=== PATIENT | male | born 1945 | race Caucasian/White ===

== ENCOUNTER 2020-09-06 19:46 | Inpatient (IN) | payer MEDICARE, OTHER ==
[~2020-09-06] VITALS: Ht 180.3 cm; Wt 106.1 kg
[2020-09-06] MEDS ORDERED: NORVASC5 MG PO (19:53)
[2020-09-06] MEDS ORDERED: FLOMAX0.4 MG PO (19:54)
[2020-09-06] MEDS ORDERED: LISINOPRIL20 MG PO (19:54)
[2020-09-06] MEDS ORDERED: SYMBICORT 80-10.2 GM INH (19:54)
[2020-09-06] MEDS ORDERED: SPIRIVA RESPIMAT4 G1 INH (19:54)
[2020-09-06] MEDS ORDERED: ALBUTEROL1.25 MG/3 INH (19:55)
[2020-09-06 20:11] VITALS: BP 164/75
[2020-09-06 20:37] LABS: BASOPHILS 0.3 % (0-2); EOSINOPHILS 5.3 % (0-7); HEMATOCRIT 30.4 % (42.0-54.0); HEMOGLOBIN 10.1 g/dL (13.5-17.5); IMMATURE GRANULOCYTES 0.2 % (0-5); LYMPHOCYTES 20.4 % (15-50); MCH 28.4 pg (26.0-34.0); MCHC 33.2 g/dL (31.0-37.0); MCV 85.4 fL (80.0-100.0); MEAN PLATELET VOLUME 9.3 fL (7.4-10.4); MONOCYTES 7.8 % (2-11); NEUTROPHIL ABS# 5.82 10x3/uL (1.78-5.38); PLATELET COUNT 338 10x3/uL (130-400); RBC 3.56 10x6/uL (4.20-6.10); RDW 16.3 % (11.5-14.5); WBC 8.8 10x3/uL (4.8-10.8)
[2020-09-06 20:42] LABS: INR 1.07 (0.85-1.17); PROTIME 12.9 SECONDS (11.6-15.0)
[2020-09-06 21:00] VITALS: BP 131/73
[2020-09-06 21:03] LABS: ALBUMIN 3.5 g/dL (3.4-5.0); ALKALINE PHOSPHATASE 52 U/L (30-120); ALT (SGPT) 20 U/L (10-68); BILIRUBIN - TOTAL 0.29 mg/dL (0.2-1.3); CALCIUM 8.8 mg/dL (8.5-10.1); CARBON DIOXIDE 29.3 mmol/L (21.0-32.0); CKMB 2.2 U/L (0.0-3.6); CREATINE KINASE 170 UL (21-232); CREATININE - SERUM 1.2 mg/dL (0.6-1.3); GLUCOSE 127 mg/dL (74-106); MAGNESIUM - SERUM 1.8 mg/dL (1.8-2.4); PRO BNP 133 pg/mL (0-125); PROTEIN - SERUM 7.6 g/dL (6.4-8.2); TROPONIN-I < 0.017 ng/mL (0.000-0.060); UREA NITROGEN 13 mg/dL (7-18); eGFR NON AFRICAN AMERICAN 63 mL/min (90-120)
[2020-09-06 21:37] LABS: CHLORIDE - SERUM 100 mmol/L (98-107); SODIUM 139 mmol/L (136-145)
[2020-09-06 21:41] LABS: CALC OSMOLALITY 275 mosm/kg (275-300)
[2020-09-06 21:43] LABS: POTASSIUM - SERUM 2.5 mmol/L (3.5-5.1)
[2020-09-06 22:09] VITALS: BP 150/80
--- NOTE | 2020-09-06 23:15 | NUR ---
PT FROM ER VIA W/C, PT AMBULATED TO BED, NO DISTRESS NOTED, RESP EVEN AND UNLABORED, CL IN REACH, SR UP X 2.
[2020-09-07 03:15] LABS: BASOPHILS 0.3 % (0-2); EOSINOPHILS 6.5 % (0-7); HEMATOCRIT 27.8 % (42.0-54.0); HEMOGLOBIN 9.1 g/dL (13.5-17.5); IMMATURE GRANULOCYTES 0.1 % (0-5); LYMPHOCYTES 25.3 % (15-50); MCHC 32.7 g/dL (31.0-37.0); MCV 85.5 fL (80.0-100.0); MEAN PLATELET VOLUME 10.1 fL (7.4-10.4); MONOCYTES 10.4 % (2-11); NEUTROPHIL ABS# 4.32 10x3/uL (1.78-5.38); NEUTROPHILS 57.4 % (40-80); PLATELET COUNT 297 10x3/uL (130-400); RBC 3.25 10x6/uL (4.20-6.10); RDW 16.5 % (11.5-14.5); WBC 7.5 10x3/uL (4.8-10.8)
[2020-09-07 03:38] LABS: ALBUMIN 2.9 g/dL (3.4-5.0); ALKALINE PHOSPHATASE 41 U/L (30-120); ALT (SGPT) 18 U/L (10-68); BILIRUBIN - TOTAL 0.23 mg/dL (0.2-1.3); CALC OSMOLALITY 283 mosm/kg (275-300); CALCIUM 8.1 mg/dL (8.5-10.1); CARBON DIOXIDE 31.3 mmol/L (21.0-32.0); CHLORIDE - SERUM 103 mmol/L (98-107); CKMB 1.5 U/L (0.0-3.6); CREATINE KINASE 152 UL (21-232); CREATININE - SERUM 1.3 mg/dL (0.6-1.3); GLUCOSE 120 mg/dL (74-106); PROTEIN - SERUM 6.7 g/dL (6.4-8.2); SODIUM 142 mmol/L (136-145); UREA NITROGEN 13 mg/dL (7-18); eGFR NON AFRICAN AMERICAN 58 mL/min (90-120)
[2020-09-07 03:48] LABS: POTASSIUM - SERUM 2.8 mmol/L (3.5-5.1); TROPONIN-I < 0.017 ng/mL (0.000-0.060)
[2020-09-07 04:00] VITALS: BP 108/65
[2020-09-07 04:06] VITALS: BP 137/66; BMI 32.7
[2020-09-07 07:58] VITALS: BP 136/78
[2020-09-07 08:56] LABS: CKMB 1.5 U/L (0.0-3.6); CREATINE KINASE 139 UL (21-232); TROPONIN-I < 0.017 ng/mL (0.000-0.060)
--- NOTE | 2020-09-07 10:17 | NUR ---
PATIENT [id number], RESP EVEN AND NON LABORED, NO S/S OF DISTRESS, MEDICATIONS ADMISNITERED, IV FLUIDS INFUSING, NO FURTHER NEEDS AT THIS TIME, CLIR, BLP
[2020-09-07 14:10] LABS: BASOPHILS 0.4 % (0-2); EOSINOPHILS 6.4 % (0-7); HEMATOCRIT 28.1 % (42.0-54.0); HEMOGLOBIN 9.1 g/dL (13.5-17.5); IMMATURE GRANULOCYTES 0.1 % (0-5); LYMPHOCYTE ABS# 2.11 10x3/uL (1.32-3.57); LYMPHOCYTES 26.5 % (15-50); MCH 28.1 pg (26.0-34.0); MCHC 32.4 g/dL (31.0-37.0); MCV 86.7 fL (80.0-100.0); MEAN PLATELET VOLUME 9.4 fL (7.4-10.4); MONOCYTES 8.8 % (2-11); NEUTROPHIL ABS# 4.59 10x3/uL (1.78-5.38); NEUTROPHILS 57.8 % (40-80); PLATELET COUNT 347 10x3/uL (130-400); RBC 3.24 10x6/uL (4.20-6.10); RDW 16.6 % (11.5-14.5)
[2020-09-07 14:28] VITALS: Ht 180.3 cm; Wt 106.1 kg
[2020-09-07 14:35] LABS: ALBUMIN 3.1 g/dL (3.4-5.0); BILIRUBIN - TOTAL 0.21 mg/dL (0.2-1.3); CALCIUM 8.2 mg/dL (8.5-10.1); CARBON DIOXIDE 26.3 mmol/L (21.0-32.0); CREATININE - SERUM 1.3 mg/dL (0.6-1.3); POTASSIUM - SERUM 3.3 mmol/L (3.5-5.1); PROTEIN - SERUM 6.3 g/dL (6.4-8.2)
[2020-09-07 14:35] LABS: CREATINE KINASE 132 UL (21-232); TROPONIN-I < 0.017 ng/mL (0.000-0.060)
[2020-09-07 14:49] VITALS: BP 150/75
[2020-09-07] MEDS ORDERED: PULMICORT0.5 MG/21 UPD (18:42)
[2020-09-07] MEDS ORDERED: TIAZAC/CARDIZEM CD PO (18:42)
--- NOTE | 2020-09-07 19:51 | NUR ---
PT DISCHARGED TO HOME PER PERSONAL VEHICLE WITH DAUGHTER, NO DISTRESS NOTED AT THIS TIME.
--- NOTE | 2020-09-08 12:18 | NUR ---
REPORTS THAT PRESCRIPTIONS WERE NOT AT PHARMACY. CALLED TO [facility].
== END 2020-09-07 19:52 | disposition home or self-care (01) | DRG 641 ==
LOC: OBSVTIME → D.ER 19:46 → D.LDO 19:46 → D.M2 22:49 → D.ER 22:49 → OBSVTIME 22:49 → D.ER 23:00 → D.LDO 23:00 → D.M2 09-07 13:22 → EDSTATUS 09-08 15:06
PROVIDERS: Family Medicine; ADMIT Emergency Medicine; ATTEND Emergency Medicine
DX: E87.6 Hypokalemia (principal); R00.2 Palpitations; R00.0 Tachycardia, unspecified; I10 Essential (primary) hypertension; D64.9 Anemia, unspecified; J44.9 Chronic obstructive pulmonary disease, unspecified; N13.9 Obstructive and reflux uropathy, unspecified; Z85.038 Personal history of other malignant neoplasm of large intestine; Z85.048 Personal history of other malignant neoplasm of rectum, rectosigmoid junction, and anus; R60.9 Edema, unspecified; Z72.0 Tobacco use